=== PATIENT | male | born 1945 | race Caucasian/White ===

== ENCOUNTER 2016-11-30 06:52 | Day surgery (SDC) | payer OTHER ==
[2016-11-30] MEDS ORDERED: DIPRIVAN 20 ML VIAL IVP ONE (09:10)
[2016-11-30] MEDS ORDERED: VERSED ONE (09:10)
--- NOTE | 2016-12-01 07:20 | OP ---
PROCEDURE: COLONOSCOPY TO CECUM WITH SNARE POLYPECTOMY. ENDOSCOPIST: Isabel HONG M.D. INDICATION: HISTORY OF ADENOMATOUS POLYPS. INSTRUMENT: [facility]190. MEDICATION: PER ANESTHESIA. DATE OF LAST COLONOSCOPY: 2008 PROCEDURE: The patient was positioned for colonoscopy. The digital rectal exam was negative. The colonoscope was inserted through the anus and advanced to the cecum. The cecum was identified using the ileocecal valve and the appendiceal orifice as landmarks. The scope was slowly withdrawn through an adequately prepped colon. Careful inspection made of each colonic segment. Scope was withdrawn in a circumferential fashion and care is taken to inspect the proximal side of the ileocecal valve, haustral folds, flexures and rectal valves. Small polyp removed in cecal pit using snare cautery. Polyps were removed at 60cm, 50cm, 30cm using snare cautery and all were approximately 5mm in size. Diverticulosis was noted in the sigmoid colon. The retroflex exam was otherwise negative. He tolerated the procedure without immediate complication. Withdraw time 10 minutes and 55 seconds. PLAN: 1. Suggest repeat colonoscopy in 3 years. CC: Dr.Matthew Inga TAYLOR
[2016-12-01 14:46] VITALS: BP 123/65; TEMP 96.8
== END 2016-11-30 10:50 | disposition home or self-care (01) ==
LOC: SURG 06:52
PROVIDERS: ATTEND Internal Medicine Gastroenterology
DX: Z09 Encounter for follow-up examination after completed treatment for conditions other than malignant neoplasm (principal); Z86.010 Personal history of colon polyps; D12.0 Benign neoplasm of cecum; D12.4 Benign neoplasm of descending colon; D12.5 Benign neoplasm of sigmoid colon; K57.30 Diverticulosis of large intestine without perforation or abscess without bleeding

== ENCOUNTER 2017-08-02 10:19 | Day surgery (SDC) | payer OTHER ==
[2017-08-02] MEDS ORDERED: LIDOCAINE 1% 20 ML MDV ID STA (12:37)
[2017-08-02] MEDS ORDERED: LIDOCAINE HCL 2% LUER-JET ONE (13:30)
[2017-08-02] MEDS ORDERED: DIPRIVAN 20 ML VIAL IVP ONE (13:30)
[2017-08-02] MEDS ORDERED: VERSED ONE (13:30)
[2017-08-02 14:24] VITALS: BP 146/75; TEMP 97.9
--- NOTE | 2017-08-03 10:57 | OP ---
PROCEDURE: EGD (ESOPHAGOGASTRODUODENOSCOPY) WITH BIOPSY. ENDOSCOPIST: Isabel HONG M.D. INDICATION: REFLUX VÁZQUEZ'S POSSIBLE FROM LAST EXAM INSTRUMENT: [facility]-190. MEDICATION: PER ANESTHESIA. PROCEDURE: The patient was positioned for endoscopy. The oropharynx was sprayed with Cetacaine spray and the endoscope was advanced through the bite block into the esophagus and from there advanced to the duodenum. The duodenum was normal. The pylorus was patent. The antrum is normal. Biopsy for Helicobacter is obtained. At the junction of the body and antrum was a 8- 7mm inflamed polyp. This had a hyperplastic appearance. Biopsies were obtained. Retroflex exam reveals normal cardia. GI junction was at 38-39cm from the incisors there was no evidence of Vázquez's or inflammatory change. He tolerated the procedure without immediate complications. PLAN: 1. Review the pathology 2. Potentially will need polypectomy pending path MTDD
== END 2017-08-02 14:20 | disposition home or self-care (01) ==
LOC: SURG 10:19
PROVIDERS: ATTEND Internal Medicine Gastroenterology
DX: K21.9 Gastro-esophageal reflux disease without esophagitis (principal); B96.81 Helicobacter pylori [H. pylori] as the cause of diseases classified elsewhere; K31.7 Polyp of stomach and duodenum
CPT/HCPCS: 87339